=== PATIENT | female | born 1930 | race Caucasian/White ===

== ENCOUNTER 2017-01-14 23:40 | Inpatient (IN) | payer MEDICARE, OTHER ==
--- NOTE | ~2017-01-14 | DS ---
Discharge Summary [facility] [address] [place]. [address] NAME: YADIRA BLOCK : 30 STATUS : DIS IN PAT#: [id number] AGE: 86 ADM/REG DATE : 01/15/17 MR#: [id number] REPORT SERV DATE: 01/19/17 DICTATED BY: CANDACE ONEAL DATE: 01/18/17 REPORT STATUS : Draft TRANSCRIBED BY: MODL DATE: 01/18/17 ADMISSION DATE: 01/15/2017 DISCHARGE DATE: 01/18/2017 DISCHARGE DIAGNOSES: 1. Acute ESBL E. coli urinary tract infection. 2. Acute metabolic encephalopathy. 3. Senile dementia, Alzheimer's type. 4. Moderate mitral stenosis with mitral regurgitation. 5. Coronary artery disease with previous myocardial infarction and ejection fraction of 55%. 6. Chronic low body weight, stable. 7. History of rheumatoid arthritis. 8. Mildly elevated TSH. 9. Previous right upper lobe lung nodule. 10.History of hypertension. 11.Previous pulmonary embolism. 12.Pacemaker. 13.Demand ischemia. 14.Chronic myelodysplastic syndrome. HISTORY: This patient lives with a daughter, Sissy Keyes. The patient was brought to the emergency room and by the time our team was called, no family was present. Our admitting partner was asked to see the patient for altered mental status and possible urinary tract infection. The ER physician told our admitting partner that the patient had a week of confusion, anorexia, and poor oral intake as well as dysuria. In the emergency room, she had heart rate of 112, troponin mildly elevated at 0.42, blood pressure 190/85, and a urinalysis with large amount of leukocyte esterase, occasional white cell clumps, 140 white cells, 10 red blood cells, a few bacteria. The patient was placed on cardiac telemetry. She was given some IV fluids and initially placed on Merrem because of a history of ESBL urinary tract infections. Her urine culture did eventually grow out ESBL E. coli. The patient had some mild dysuria. We continued the Merrem and on her last day of discharge, we did give her fosfomycin orally. She has had no fever. Her white blood count has been normal, and her procalcitonin was undetectably low. As far as her confusion was concerned, she had a CT scan of the brain without contrast showing age-related atrophy and white matter changes, but no acute abnormalities. 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 Chest x-ray shows focal opacity in the right lung, could be atelectasis or fibrosis and pacemaker and prior surgical changes. Her TSH was slightly elevated at 6.99 that will need follow up. Her renal function has been normal. Her electrolytes have been unremarkable. Liver enzymes only remarkable for a minimal elevation of her alkaline phosphatase at 125. Her free T4 was normal at 1.24, and her troponin was mildly elevated at 0.42, then 0.83, then 0.51. This is thought to be due to demand ischemia and not infarction as she had no chest pain and no EKG changes of ischemia, and she did experience tachycardia. She had a recent echocardiogram on Discharge Summary [address] [address] NAME: YADIRA BLOCK : 30 STATUS : DIS IN PAT#: [id number] AGE: 86 ADM/REG DATE : 01/15/17 MR#: [id number] REPORT SERV DATE: 01/19/17 DICTATED BY: CANDACE ONEAL DATE: 01/18/17 REPORT STATUS : Draft TRANSCRIBED BY: NATASHA DATE: 01/18/17 11/24/2016 showing left atrial enlargement 4.2 cm, left ventricular ejection fraction of 55%, moderate mitral valve stenosis with mitral valve area of 1.7 cm2, moderate mitral regurgitation. I was able to speak to her daughter, Sissy Keyes, on the phone. She indicated that the patient has been living with her for about the last three months. Previously, she lived with a son, but he was in and out of alf and causing her a lot of stress and apparently he smoked crack at her home, and she was evicted about three months ago because of his behavior. The daughter describes that on the Wednesday of the week of admission, the patient got agitated believing that all of her money was gone, kept saying "I must go somewhere" but could not tell them where she was going, angry, difficult to get her to cooperate. The daughter also admitted that the patient has memory problems for years, never knows the date, day, or year; has not been able to pay her bills for greater than 5 years, unable to cook meals for more than 10 or 15 years because of forgetfulness would burn things on the stove. Family has to assist her with washing and drying of her clothing. She has difficulty remembering the names of family members. She needs some help with dressing, but the daughter thought that was mostly due to rheumatoid arthritis changes in her hands. The patient reportedly bathes herself, takes herself to the bathroom. The daughter admits that the patient was diagnosed with Alzheimer's years ago but never offered any therapy. I talked with the daughter on the phone at that time about Alzheimer's and how the therapies at best slow the progression of the illness but it is still reasonable to try them to see if it will allow her to live outside of a facility for a longer period of time. We have elected to start with Aricept low dose, it can be gradually titrated up by her PCP and then the option of adding Namenda is there as well. We did not really know the home med list until I got the hold of the daughter on the phone on 01/16/2017 and even then there was one "blood pressure pill that is 5 mg" that the daughter did not know what it was and apparently the patient was out of it. The patient is felt to be stable for discharge from the hospital and to be with family. DISCHARGE MEDICATIONS: Will include new medicine Aricept 5 mg at bedtime. Otherwise her home medicines of amitriptyline 50 mg at bedtime, aspirin 81 mg daily, carvedilol 12.5 mg b.i.d., Plavix 75 mg daily, gabapentin 600 mg t.i.d., metformin 500 mg daily, Tylenol 650 q.6 hours p.r.n. pain, Crestor 20 mg daily, magnesium oxide 400 mg daily, and apparently she takes some tcxa-xgg-tkjegxf iron as well. The patient should follow up with her PCP, Dr. Brody Chen in the next week for assisted follow up of her urinary infections as well as her TSH and Aricept and other options for dementia. She also sees [facility], Dr. Bentley, for her myelodysplastic syndrome and she sees Cardiology, Dr. Renteria at [facility]. I spent 43 minutes with the patient today. DICTATED BY: Candace Oneal M.D. Discharge Summary [address] [address] NAME: YADIRA BLOCK : 30 STATUS : DIS IN PAT#: [id number] AGE: 86 ADM/REG DATE : 01/15/17 MR#: [id number] REPORT SERV DATE: 01/19/17 DICTATED BY: CANDACE ONEAL DATE: 01/18/17 REPORT STATUS : Draft TRANSCRIBED BY: MODL DATE: 01/18/17 RSG/NATASHA Candace Oneal M.D. / [id number] CC: Evert Valle M.D. Gregory R. Sutton, MD William Oellerich, M.D., Ph.D, F.A.C.C.
--- NOTE | ~2017-01-14 | HP ---
History And Physical [place] [address] [facility] [place]. [address] NAME: YADIRA BLOCK : 30 STATUS : ADM IN [facility]#: [id number] AGE: 86 ADM/REG DATE : 01/15/17 MR#: [id number] REPORT SERV DATE: 01/15/17 DICTATED BY: DMITRI LUDWIG DATE: 01/15/17 REPORT STATUS : Draft TRANSCRIBED BY: MODLee DATE: 01/15/17 DATE OF ADMISSION: 01/14/2017 POINT OF ENTRY: [facility] Emergency Department. CHIEF COMPLAINT: Altered mental status. HISTORY OF PRESENT ILLNESS: Ms. 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 History is obtained by review of ER chart as well as talking to the ER physician, as unfortunately family has left the ER by the time I saw the patient, and the patient is unable to provide much history. According to the ER physician, the family brought the patient in for evaluation for a weeklong history of confusion, anorexia, poor oral intake, as well as complaints of dysuria. The patient denies being confused; however, she cannot tell me why she is here in the hospital, but does admit to some dysuria. Initial evaluation in the emergency department is notable for the patient has tachycardia with a heart rate of 112 as well as very hypertensive with 190/85. Labs are notable for a troponin of 0.42. EKG was nonischemic except for evidence of sinus tachycardia. She does have a urinary tract infection. Remainder of her labs are otherwise unremarkable. She was started on some IV fluids without much improvement in her heart rate. She was then placed on an inch of nitro paste again without improvement in heart rate or blood pressure as well as given a gram of Rocephin. COMPREHENSIVE REVIEW OF SYSTEMS: Otherwise negative unless listed in history of present illness. Specifically, she denies any recent fevers, night sweats, chills, chest pain, palpitations, shortness of breath, abdominal pain, nausea, vomiting, diarrhea, or constipation, but does endorse dysuria. PREVIOUS MEDICAL HISTORY: 1. 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 2. Qef-xfkmqes-ourzqrgcm diabetes mellitus type 2. 3. Hypertension. 4. Coronary artery disease with prior myocardial infarction. 5. Rheumatoid arthritis. 6. Carotid stenosis. 7. History of PE. 8. History of MDS. 9. History of septic shock. History And Physical [address] [address] NAME: YADIRA BLOCK : 30 STATUS : ADM IN PAT#: [id number] AGE: 86 ADM/REG DATE : 01/15/17 MR#: [id number] REPORT SERV DATE: 01/15/17 DICTATED BY: DMITRI LUDWIG DATE: 01/15/17 REPORT STATUS : Draft TRANSCRIBED BY: NATASHA DATE: 01/15/17 SURGICAL HISTORY: 1. Cholecystectomy. 2. Pacemaker insertion. 3. Partial hysterectomy. 4. Lung mass resection. ALLERGIES: ARE TO SULFA DRUGS, BACTRIM, CODEINE, HYDROCODONE. HOME MEDICATIONS: Unable to complete, as the patient is altered. Pharmacy to complete in the morning. SOCIAL HISTORY: Denies any tobacco, alcohol, or illicits. States she lives alone, but frequently visits with her daughter, who is no longer at bedside. FAMILY MEDICAL HISTORY: Notable for diabetes and coronary artery disease. LABS AND IMAGIN. White count is 8.6, hemoglobin is 13.8, hematocrit is 40.6, platelets 153. INR 1.1. 2. Sodium is 136, potassium 4.2, chloride 101, carbon dioxide 31, BUN 8, creatinine 0.59, glucose is 133, calcium is 10.0, magnesium is 1.7. 3. Troponin 0.42. 4. Urinalysis, specific gravity is 1.005, cloudy with large leukocyte esterase, 10 red blood cells with 140 white blood cells per high-powered field with few bacteria. 5. EKG per my review shows sinus tachycardia with heart rate of 119 without evidence of any acute ischemia or infarction. PHYSICAL EXAMINATION: VITAL SIGNS: Temperature is 98.0 degrees Fahrenheit, pulse is 112, respirations 16, saturating 99% on room air, blood pressure is 190/85. On recheck, blood pressure is now 182/89 with pulse in the 120s. GENERAL: The patient is awake, alert, in no acute distress, resting comfortably in bed. She is a well-developed, well-nourished elderly female. No family is at bedside. HEENT: Atraumatic and normocephalic. Moist mucous membranes. Pupils are equal, round, reactive to light and accommodation. Extraocular eye movements are intact. No scleral icterus. NECK: No jugular venous distention. No carotid bruits. CARDIAC: Tachycardic rate, regular rhythm. No murmurs or gallops. Normal S1, S2. LUNGS: Clear to auscultation bilaterally. No wheezes, rhonchi, or rales. ABDOMEN: Soft, nontender, nondistended with good bowel sounds. No rebound, guarding, or rigidity. EXTREMITIES: Warm and perfused. No cyanosis, clubbing, or edema. SKIN: Warm and dry. PSYCH: Affect appropriate. NEURO: Alert and oriented x2 to person and place, but not to time. She does know her birthday. Is unable to tell me why she is here. Cranial nerves 2 through 12 are grossly intact. Speech is normal. Gait is not assessed. History And Physical [address] [address] NAME: YADIRA BLOCK : 30 STATUS : ADM IN [facility]#: [id number] AGE: 86 ADM/REG DATE : 01/15/17 MR#: [id number] REPORT SERV DATE: 01/15/17 DICTATED BY: DMITRI LUDWIG DATE: 01/15/17 REPORT STATUS : Draft TRANSCRIBED BY: NATASHA DATE: 01/15/17 ASSESSMENT AND PLAN: Ms. Block is an 86-year-old female, brought to the emergency department today for reports of altered mental status, failure to thrive, and dysuria, and found to have evidence of urinary tract infection as well as hypertension and tachycardia. PROBLEM LIST: 1. Urinary tract infection. 2. Acute encephalopathy. 3. Elevated troponin level. 4. Hypertension. 5. Tachycardia. 6. History of ESBL E coli urinary tract infection. 7. Dwq-feipwpi-kkqvqsegx diabetes mellitus type 2. 8. Coronary artery disease. PLAN: 1. Urinary tract infection. The patient has history of ESBL E coli urinary tract infection. Therefore, we will convert the IV Rocephin over to IV meropenem. Follow up urine culture. 2. Encephalopathy, likely secondary to urinary tract infection. We will limit sedating medications. Check ammonia level, thyroid function studies, drug screen, and vitamin B12 levels. 3. Elevated troponin level, likely demand ischemia from her underlying urinary tract infection; tachycardia; and hypertension. She denies any chest pain. EKG is nonischemic. We will continue to trend out cardiac enzymes. 4. Hypertension. Unclear etiology as to why she is so hypertensive. We will place the patient on some scheduled Norvasc and Lopressor. IV hydralazine p.r.n. for elevated blood pressure. 5. Tachycardia. Again, unclear etiology. The patient may be suffering from beta-gini withdrawal. She denies any chest pain. She is not hypoxic. Therefore, my suspicion for PE is low at this time. We will continue to try IV fluid resuscitation to try and bring down her heart rate as well as some IV p.r.n. Lopressor. We will also place the patient on some scheduled beta-gini. 6. Mbk-htpkjus-oumtwqmgk diabetes mellitus type 2. Check hemoglobin A1c. Place her on level 1 insulin sliding scale until medications are confirmed. 7. DVT prophylaxis. Lovenox subcu. CODE STATUS: The patient wished to be full code. ELIA/NATASHA Dmitri Ludwig MD / [id number] History And Physical [address] [address] NAME: YADIRA BLOCK : 30 STATUS : ADM IN [facility]#: [id number] AGE: 86 ADM/REG DATE : 01/15/17 MR#: [id number] REPORT SERV DATE: 01/15/17 DICTATED BY: DMITRI LUDWIG DATE: 01/15/17 REPORT STATUS : Draft TRANSCRIBED BY: NATASHA DATE: 01/15/17 CC: Brody Chen M.D.
[~2017-01-14 23:40] MED LIST: AMARYL2 PO; AMIT50 PO; AMOXIL500 MG PO; ASAB PO; ATEN25 PO; B121000P IM; BENTYL10 PO; COMBIVENT INH; CRESTOR10 PO; ENBREL50 MG/M1 SC; ENDOCET1 TA3 PO; ENDOCET1 TAB PO; FERROUS SULF325 M1 PO; FISH-EPA1000 MG PO; FLONASE NAS; FLOVENT DISK50 MCG INH; GLUCOPHAGE1000 MG PO; GLUCPH PO; GLUCPH8 PO; GLUCXL5 PO; K500 PO; LUNESTA2 M1 OR; LYRICA75 PO; MACROBID PO; MAGOX4 PO; METHOTREXATE25 MG/ML; METHOTREXATE25 MG/ML IJ; METHOTREXATE25 MG/ML SQ; NEUR400 PO; NEUR600 PO; NEXIUM40 PO; NIACIN100 PO; PCET PO; PLAVIX PO; PRIN5 PO; REM15 PO; SEPTRA DS1 TAB PO; ZETIA PO; ZOCOR10 PO
[2017-01-15 01:24] LABS: BASOPHILS 0.5 %; BASOPHILS ABSOLUTE 0.04 10/3/uL (0.0-0.16); EOSINOPHILS 1.8 %; EOSINOPHILS ABSOLUTE 0.15 10/3/uL (0.0-0.53); HEMOGLOBIN 13.8 g/dL (12.0-16.0); IMMATURE GRANULOCYTES 0.2 %; IMMATURE GRANULOCYTES ABSOLUTE 0.02 10/3/uL (0.0-0.11); LYMPHOCYTES ABSOLUTE 3.16 10/3/uL (0.67-4.30); MEAN CORPUSCULAR HEMOGLOB 31.6 pg (26.0-34.0); MEAN PLATELET VOLUME 9.7 fL (9.2-13.0); NEUTROPHILS 53.5 %; NEUTROPHILS ABSOLUTE 4.58 10/3/uL (2.02-8.40); PLATELET COUNT 153 10/3/uL (150-400); RBC DISTRIBUTION WIDTH 13.9 % (12.0-16.0); RED CELL COUNT 4.37 10/6/uL (4.0-5.6); WHITE BLOOD CELLS 8.6 10/3/uL (4.5-10.5)
[2017-01-15 01:26] LABS: HEMATOCRIT 40.6 % (36.0-48.0); MANUAL DIFF NO %; MEAN CORPUSCULAR VOLUME 92.9 fL (80-100)
[2017-01-15 01:33] LABS: INTERNATIONAL NORMAL RATI 1.1 UNITS (-); PARTIAL THROMBO TIME 28.9 SEC (22.5-37.2); PROTIME (NOT ORD) 14.1 SEC (12.0-14.5)
[2017-01-15 01:42] LABS: BUN (BLOOD UREA NITROGEN) 8 MG/DL (6-23); CHLORIDE, SERUM 101 MMOL/L (96-112); CO2 (CARBON DIOXIDE) 31 MMOL/L (24-34); CREATININE 0.59 MG/DL (0.55-1.02); GFR AFRICAN AMERICAN 96 ML/MIN (>=60); GFR NON AFRICAN AMERICAN 83 ML/MIN (>=60); POTASSIUM, SERUM 4.2 MMOL/L (3.5-5.3); SODIUM, SERUM 136 MMOL/L (135-148)
[2017-01-15 01:43] LABS: CHEST PAIN PROFILE TAT 0 Hrs 23 Mins; GLUCOSE, SERUM 133 MG/DL (60-99); TROPONIN I 0.42 NG/ML (<0.05)
[2017-01-15 02:04] LABS: ASCORBIC ACID (UR NOT ORDER) NEG (NEG); BILIRUBIN, URINE NEGATIVE (NEG); ER URINALYSIS TAT 0 Hrs 00 Mins; KETONE, URINE NEGATIVE (NEG); LEUKOCYTE ESTERASE(NOT OR LARGE (NEG); NITRITE (URINE) NEG (NEG); WBC (NOT ORDERED) (RFLEX) 140 (0-5)
[2017-01-15] MEDS ORDERED: PERCOCET 7.5/321 TAB PO (02:52)
[2017-01-15] MEDS ORDERED: *UNABLE1 (02:54)
[2017-01-15 05:14] LABS: ALBUMIN 3.9 G/DL (3.5-5.0); ALKALINE PHOSPHATASE 125 U/L (45-117); DIRECT BILIRUBIN 0.2 MG/DL (0.0-0.4); INDIRECT BILIRUBIN(NOT ORDER) 0.6 MG/DL (0.1-0.9); SGOT(AST) 22 U/L (5-40); SGPT(ALT) 14 U/L (5-65); TOTAL BILIRUBIN 0.8 MG/DL (0-1.2); TOTAL PROTEIN 9.3 G/DL (6.0-8.5)
[2017-01-15 07:46] LABS: BASOPHILS 0.4 %; BASOPHILS ABSOLUTE 0.03 10/3/uL (0.0-0.16); EOSINOPHILS 2.1 %; EOSINOPHILS ABSOLUTE 0.16 10/3/uL (0.0-0.53); HEMOGLOBIN 11.3 g/dL (12.0-16.0); IMMATURE GRANULOCYTES 0.1 %; IMMATURE GRANULOCYTES ABSOLUTE 0.01 10/3/uL (0.0-0.11); LYMPHOCYTES 34.2 %; LYMPHOCYTES ABSOLUTE 2.56 10/3/uL (0.67-4.30); MEAN CORPUS HGB CONC 33.3 g/dL (32.0-36.0); MEAN CORPUSCULAR HEMOGLOB 30.9 pg (26.0-34.0); MEAN CORPUSCULAR VOLUME 92.6 fL (80-100); MEAN PLATELET VOLUME 9.6 fL (9.2-13.0); MONOCYTES 9.1 %; MONOCYTES ABSOLUTE 0.68 10/3/uL (0.21-1.20); NEUTROPHILS 54.1 %; NEUTROPHILS ABSOLUTE 4.05 10/3/uL (2.02-8.40); PLATELET COUNT 123 10/3/uL (150-400); RBC DISTRIBUTION WIDTH 14.1 % (12.0-16.0); RED CELL COUNT 3.66 10/6/uL (4.0-5.6); WHITE BLOOD CELLS 7.5 10/3/uL (4.5-10.5)
[2017-01-15 07:47] LABS: HEMATOCRIT 33.9 % (36.0-48.0); MANUAL DIFF NO %
[2017-01-15 07:55] LABS: GLYCOHEMOGLOBIN (HbA1c) 6.6 % (4.7-6.1)
[2017-01-15 08:08] LABS: BUN (BLOOD UREA NITROGEN) 9 MG/DL (6-23); CALCIUM, SERUM 8.6 MG/DL (8.5-10.4); CHLORIDE, SERUM 106 MMOL/L (96-112); CK-MB 4.2 NG/ML; CO2 (CARBON DIOXIDE) 26 MMOL/L (24-34); CPK 47 U/L (0-200); CREATININE 0.55 MG/DL (0.55-1.02); FREE T4 1.24 NG/DL (0.76-1.46); GFR AFRICAN AMERICAN 98 ML/MIN (>=60); GFR NON AFRICAN AMERICAN 85 ML/MIN (>=60); GLUCOSE, SERUM 140 MG/DL (60-99); POTASSIUM, SERUM 3.5 MMOL/L (3.5-5.3); SODIUM, SERUM 139 MMOL/L (135-148); TROPONIN I 0.83 NG/ML (<0.05)
[2017-01-15 08:11] LABS: B NATRIURETIC PEPTIDE (BNP) 505.9 PG/ML (< 100.0)
[2017-01-15 08:26] LABS: FOLATE 18.5 NG/ML (>5.2)
[2017-01-15 09:43] LABS: PROCALCITONIN <0.05 ng/mL (<0.5)
[2017-01-15 12:50] LABS: CPK 43 U/L (0-200)
[2017-01-15 12:52] LABS: CK-MB 3.5 NG/ML; TROPONIN I 0.51 NG/ML (<0.05)
[2017-01-15] MEDS ORDERED: MTX50 IM (14:21)
[2017-01-15] MEDS ORDERED: PLAVIX PO (14:22)
[2017-01-15] MEDS ORDERED: COREG12 PO (14:22)
[2017-01-15] MEDS ORDERED: MAGOX4 PO (14:24)
[2017-01-15] MEDS ORDERED: AMIT50 PO (14:25)
[2017-01-15] MEDS ORDERED: NEUR600 PO (14:25)
[2017-01-15] MEDS ORDERED: B121000P IM (14:26)
[2017-01-15] MEDS ORDERED: FORTAMET500 MG PO (14:27)
[2017-01-15] MEDS ORDERED: CRESTOR20 MG PO (14:27)
[2017-01-15] MEDS ORDERED: INHALER PO (14:31)
[2017-01-15 15:19] LABS: ALBUMIN 2.7 G/DL (3.5-5.0); BUN (BLOOD UREA NITROGEN) 10 MG/DL (6-23); CALCIUM, SERUM 8.3 MG/DL (8.5-10.4); CHLORIDE, SERUM 107 MMOL/L (96-112); CO2 (CARBON DIOXIDE) 28 MMOL/L (24-34); CREATININE 0.54 MG/DL (0.55-1.02); GFR AFRICAN AMERICAN 99 ML/MIN (>=60); GFR NON AFRICAN AMERICAN 85 ML/MIN (>=60); GLUCOSE, SERUM 122 MG/DL (60-99); PHOSPHORUS, SERUM 2.5 MG/DL (2.5-4.5); POTASSIUM, SERUM 3.9 MMOL/L (3.5-5.3); SODIUM, SERUM 140 MMOL/L (135-148)
[2017-01-18 10:29] LABS: A/G 0.94 RATIO (0.9-2.10); ALB RELATIVE % 48.5 % (60.0-89.0); ALBUMIN (ELECTRO) 4.51 GM/DL (3.2-5.5); ALPHA 1 (ELECTRO) 0.38 GM/DL (0.1-0.4); ALPHA 1 RELAT % (NOT ORD) 4.1 % (1.0-4.0); ALPHA 2 (ELECTRO) 1.19 GM/DL (0.5-1.10); ALPHA 2 RELAT % 12.8 % (4.5-26.0); BETA GLOBULIN (SPE) 1.22 GM/DL (0.60-1.30); BETA RELATIVE % 13.1 % (9.0-22.0); GAMMA RELAT % 21.5 % (6.0-22.0)
[2017-01-18 10:31] LABS: T PROTEIN (ELECT)(NOT OR 9.3 G/DL (6.0-8.5)
[2017-01-18] MEDS ORDERED: ARICEPT5 PO (14:04)
[2017-01-19 09:27] LABS: ALBUMIN RELAT % 36.7 %
== END 2017-01-18 19:30 | disposition home or self-care (01) | DRG 689 ==
LOC: ER 23:40 → 6NO 01-15 04:11
PROVIDERS: Emergency Medicine; Hospitalist; Internal Medicine
DX: N39.0 Urinary tract infection, site not specified (principal); G93.41 Metabolic encephalopathy; I24.8 Other forms of acute ischemic heart disease; G30.9 Alzheimer's disease, unspecified; I05.2 Rheumatic mitral stenosis with insufficiency; B96.20 Unspecified Escherichia coli [E. coli] as the cause of diseases classified elsewhere; F02.80 Dementia in other diseases classified elsewhere, unspecified severity, without behavioral disturbance, psychotic disturbance, mood disturbance, and anxiety; I10 Essential (primary) hypertension; D46.9 Myelodysplastic syndrome, unspecified; E11.9 Type 2 diabetes mellitus without complications; I25.10 Atherosclerotic heart disease of native coronary artery without angina pectoris; M06.9 Rheumatoid arthritis, unspecified; I25.2 Old myocardial infarction; I65.29 Occlusion and stenosis of unspecified carotid artery; Z16.12 Extended spectrum beta lactamase (ESBL) resistance; Z86.711 Personal history of pulmonary embolism; Z95.0 Presence of cardiac pacemaker; Z79.02 Long term (current) use of antithrombotics/antiplatelets; Z87.440 Personal history of urinary (tract) infections; Z88.5 Allergy status to narcotic agent; Z88.2 Allergy status to sulfonamides
CPT/HCPCS: 70450; 71010; 80048; 80069; 80076; 81001; 82140; 82550; 82553; 82607; 82746; 82962; 83036; 83605; 83735; 83880; 84145; 84155; 84156; 84165; 84166; 84439; 84443; 84484; 85025; 85610; 85730; 86592; 87077; 87086; 87186; 87389; 93005; 96374; 97161-GP; 99285; A9270-GY; G8978-CK-GP; G8979-CJ-GP; G8980-CJ-GP; J2185